=== PATIENT | male | born 1950 | race Caucasian/White ===

== ENCOUNTER 2022-11-22 22:13 | Inpatient (IN) | payer OTHER ==
[~2022-11-22] VITALS: Ht 165.1 cm; Wt 90.7 kg
[2022-11-22 22:28] VITALS: BP_SYST 111
--- NOTE | 2022-11-22 23:11 | NUR ---
MD AT BEDSIDE FOR EVALUATION AND ORDERS. FIRST CONTACT WITH PT. ASSESSMENT COMPLETED.
[2022-11-22 23:20] LABS: BASOPHILS # (AUTO) 0.1 K/uL (0.0-0.2); EOSINOPHILS # (AUTO) 0.4 K/uL (0.0-0.4); EOSINOPHILS % (AUTO) 5.8 % (0.0-4.0); HEMATOCRIT 37.5 % (36-54); HEMOGLOBIN 12.4 g/dL (14.0-18.0); LYMPHOCYTES # (AUTO) 1.8 K/uL (1.0-5.5); LYMPHOCYTES % (AUTO) 25.9 % (20.5-51.5); MEAN CORPUSCULAR HEMOGLOBIN 30 pg (27-31); MEAN CORPUSCULAR HGB CONC 33 % (32-36); MEAN CORPUSCULAR VOLUME 90 fL (79.0-98.0); MONOCYTES # (AUTO) 0.4 K/uL (0.0-1.0); MONOCYTES % (AUTO) 6.5 % (1.7-9.3); NEUTROPHILS # (AUTO) 4.2 K/uL (1.8-7.7); NEUTROPHILS % (AUTO) 60.8 % (40.0-70.0); PLATELET COUNT (AUTO) 168 K/uL (130-430); RED BLOOD CELL COUNT(AUTO) 4.17 MIL/uL (4.2-6.2); RED CELL DISTRIBUTION WIDTH 13.6 % (9.0-15.0); WHITE BLOOD COUNT (AUTO) 6.8 K/uL (4.8-10.8)
[2022-11-22 23:36] LABS: ANION GAP 6 (5-15); CALCIUM 8.7 mg/dL (8.4-11.0); CHLORIDE 104 mmol/L (98-107); CREATININE 1.93 mg/dL (0.55-1.30); GLUCOSE 349 mg/dL (70-99); UREA NITROGEN, BLOOD 24 mg/dL (8-21)
[2022-11-22 23:41] LABS: PROTHROMBIN TIME 10.2 SECS (9.5-12.5)
[2022-11-22 23:43] LABS: ALANINE AMINOTRANSFERASE 31 U/L (12-78); ASPARTATE AMINOTRANSFERASE 26 U/L (10-37); TOTAL BILIRUBIN 0.7 mg/dL (0.0-1.0)
--- NOTE | 2022-11-22 23:45 | NUR ---
FIRST CONTACT WITH PT. ASSESSMENT COMPLETED. AWAITING ADDITIONAL EVALUATION.
[2022-11-22 23:47] LABS: GFR AFRICAN AMERICAN 44 mL/min (>90)
[2022-11-23] VITALS (21 sets, daily range): BP systolic 83–160
[2022-11-23] MEDS ORDERED: DOPamine PREMIX 250 ML IV ONE ×2 (00:30→01:59)
--- NOTE | 2022-11-23 01:35 | NUR ---
Admit bed requested Patient will be admitted to care of . Admitted to ICU unit. Diagnosis SICK SINUS SYNDRONE Inpatient (Yes or No) Y Observation (Yes or No) N Orientation concerns or request close to nursing station (Yes or No) N Covid Status NA On vent or bipap N Isolation requirements N Needs a sitter N From Home (Yes or if No enter name of facility) Y Requires Dialysis (Yes or No) N Med Rec Completed (Yes of No) Y
--- NOTE | 2022-11-23 02:00 | NUR ---
ADMITTED FROM ER VIA [facility] AWAKE AND ALERT AMBULATORY WALKED TO BEDSIDE COMMODE, CONNECTED TO BEDSIDE MONITOR, DOPAMINE STARTED BP SHOOT UP STARTED AT LOW DOSE 2.5 MCG, PER PATIENT HE DID NOT TAKE ANY OF HIS BP MEDS AND INSULIN YET, NO MEDS GIVEN IN ER. PER SHE TOLD THE NURSE SHE HAD THE LIST OF HIS MEDICATION RN ANSWERED WE DONT NEED THAT RIGHT NOW, [address] PIERRE INFORMED HIM OF CURRENT HOME MEDS ADVISED TO START TONIGHT EXCEPT METOPOLO. [id number] COVERAGE GIVEN AND LANTUS GIVEN. 0300 PATIENT KEPT NPO FOR TRANSVENOUS PACEMAKER PLACEMENT TO[place]. 0400 SLEEPING SOUNDLY SB 48 ON MONITOR DOPAMINE INCREASED TO 3MCG.
[2022-11-23] MEDS: amLODIPine BESYLATE 5 MG TABLET PO SCH ×2 (03:00→09:00)
[2022-11-23] MEDS: INSULIN GLARGINE 100 UNITS/ML, 10 ML VIAL SUBCUT SCH ×2 (03:00→20:40)
[2022-11-23] MEDS: LISINOPRIL 10 MG TABLET (PRINIVIL) PO SCH ×3 (03:00→20:28)
[2022-11-23] MEDS ORDERED: NALOXONE HCL 0.4 MG/ML AMP (NARCAN) IVP PRN ×3 (03:00→13:00)
[2022-11-23] MEDS ORDERED: LISINOPRIL 10 MG TABLET (PRINIVIL) ONE (03:17)
[2022-11-23] MEDS ORDERED: ISOSORBIDE DINITRATE 10 MG TABLET (ISORDIL) ONE (03:17)
--- NOTE | 2022-11-23 03:46 | NUR ---
Patient will be admitted to care of DR CASAREZ. Admitted to ICU unit. Will go to room 07 . Belongings list completed. Complete and up to date summary report printed. SBAR report to be given at bedside with opportunity for questions.
[2022-11-23] MEDS: INSULIN LISPRO SLIDING SCALE 100 UNITS/ML, 3 ML VIAL (humaLOG) SUBCUT PRN ×4 (04:11→20:41)
[2022-11-23 05:12] LABS: BASOPHILS # (AUTO) 0.1 K/uL (0.0-0.2); BASOPHILS % (AUTO) 0.8 % (0.0-2.0); EOSINOPHILS # (AUTO) 0.4 K/uL (0.0-0.4); EOSINOPHILS % (AUTO) 4.4 % (0.0-4.0); HEMATOCRIT 38.4 % (36-54); HEMOGLOBIN 12.8 g/dL (14.0-18.0); LYMPHOCYTES # (AUTO) 1.6 K/uL (1.0-5.5); LYMPHOCYTES % (AUTO) 19.1 % (20.5-51.5); MEAN CORPUSCULAR HEMOGLOBIN 30 pg (27-31); MEAN CORPUSCULAR HGB CONC 33 % (32-36); MEAN CORPUSCULAR VOLUME 89 fL (79.0-98.0); MONOCYTES # (AUTO) 0.6 K/uL (0.0-1.0); NEUTROPHILS # (AUTO) 5.6 K/uL (1.8-7.7); NEUTROPHILS % (AUTO) 68.7 % (40.0-70.0); PLATELET COUNT (AUTO) 153 K/uL (130-430); RED BLOOD CELL COUNT(AUTO) 4.29 MIL/uL (4.2-6.2); RED CELL DISTRIBUTION WIDTH 13.4 % (9.0-15.0); WHITE BLOOD COUNT (AUTO) 8.2 K/uL (4.8-10.8)
[2022-11-23 05:50] LABS: CALCIUM 8.9 mg/dL (8.4-11.0); CREATININE 1.84 mg/dL (0.55-1.30); TOTAL BILIRUBIN 0.6 mg/dL (0.0-1.0)
[2022-11-23 05:59] LABS: PROTHROMBIN TIME 10.3 SECS (9.5-12.5)
[2022-11-23] MEDS: ISOSORBIDE DINITRATE 20 MG TABLET (ISORDIL) PO SCH ×2 (09:00→20:26)
[2022-11-23] MEDS: FUROSEMIDE 20 MG TABLET PO SCH ×2 (09:00→20:27)
[2022-11-23] MEDS: ATORVASTATIN 20 MG TABLET PO SCH (09:00)
[2022-11-23] MEDS ORDERED: HYDROmorphone 1 MG/ML INJ. CARTRIDGE IVP ONE (10:15)
--- NOTE | 2022-11-23 10:55 | NUR ---
EVENT MONITOR TURNED INTO ZEE FLOWERS PER DR. FRANCIS
--- NOTE | 2022-11-23 11:00 | NUR ---
TO O.R. CONNECTED PT TO PORTABLE GIVING OFFICER, WAS SEEN BY DR Kenisha FRANCIS, WITH [employer] CONTENT PRODUCER. TRANSPORTED VIA BED, ACCOMPANYING THE PATIENT.
[2022-11-23] MEDS ORDERED: ACETAMINOPHEN 500 MG TABLET PO ONE (13:00)
[2022-11-23] MEDS ORDERED: ONDANSETRON HCL 4 MG/2 ML VIAL IVP PRN (13:00)
[2022-11-23] MEDS ORDERED: HYDROmorphone 1 MG/ML INJ. CARTRIDGE IVP PRN (13:00)
[2022-11-23] MEDS ORDERED: METOCLOPRAMIDE HCL 10 MG/2 ML VIAL IVP PRN (13:00)
--- NOTE | 2022-11-23 13:00 | NUR ---
TO ICU RECEIVED PT IN ROOM 7. PT ALERT, ORIENTED, 2 STOPCOCKS IN RIGHT FEMORAL, RIGHT LEG IMMOBILIZER, INSTRUCTED PT TO AVOID MOVING RIGHT LEG TO PREVENT BLEEDING/DISCOMFORTS.
--- NOTE | 2022-11-23 13:15 | NUR ---
INCENTIVE SPIROMETER GIVEN AND VERBAL INSTRUCTIONS AND DEMONSTRATION GIVEN ON HOW TO USE. PATIENT STATES "I AINT GOING TO USE THAT THING, I HAVE 3 AT HOME. YOU CAN LEAVE IT THERE BUT I AM NOT GOING TO USE THAT." RISKS AND BENEFITS EXPLAINED. PATIENT THEN STATED "WHY ARE YOU TALKING? THE NEXT THING THAT COMES OUT OF YOUR MOUTH SHOULD BE YOU HAVE MY PAIN PILL."
[2022-11-23] MEDS: HYDROcodone/ACETAMIN 10-325 MG TAB PO PRN ×2 (13:40→20:31)
[2022-11-24] VITALS (12 sets, daily range): BP systolic 114–153
[2022-11-24 05:04] LABS: BASOPHILS % (AUTO) 0.5 % (0.0-2.0); EOSINOPHILS # (AUTO) 0.2 K/uL (0.0-0.4); EOSINOPHILS % (AUTO) 2.3 % (0.0-4.0); HEMATOCRIT 36.6 % (36-54); HEMOGLOBIN 12.3 g/dL (14.0-18.0); LYMPHOCYTES # (AUTO) 1.5 K/uL (1.0-5.5); LYMPHOCYTES % (AUTO) 15.7 % (20.5-51.5); MEAN CORPUSCULAR HEMOGLOBIN 30 pg (27-31); MEAN CORPUSCULAR HGB CONC 34 % (32-36); MEAN CORPUSCULAR VOLUME 89 fL (79.0-98.0); MONOCYTES # (AUTO) 0.7 K/uL (0.0-1.0); MONOCYTES % (AUTO) 7.5 % (1.7-9.3); NEUTROPHILS # (AUTO) 7.1 K/uL (1.8-7.7); PLATELET COUNT (AUTO) 139 K/uL (130-430); RED BLOOD CELL COUNT(AUTO) 4.11 MIL/uL (4.2-6.2); RED CELL DISTRIBUTION WIDTH 13.6 % (9.0-15.0); WHITE BLOOD COUNT (AUTO) 9.7 K/uL (4.8-10.8)
[2022-11-24 05:35] LABS: CALCIUM 8.7 mg/dL (8.4-11.0); CREATININE 1.57 mg/dL (0.55-1.30); TOTAL BILIRUBIN 0.8 mg/dL (0.0-1.0)
[2022-11-24] MEDS ORDERED: D5W 1,000 ML IV PRN (08:15)
[2022-11-24] MEDS ORDERED: DEXTROSE 50%-WATER 50 ML DISP.SYRIN IVP PRN (08:15)
[2022-11-24] MEDS ORDERED: GLUCOSE (DEXTROSE) ORAL GEL -Adults PO PRN (08:15)
[2022-11-24] MEDS: ATORVASTATIN 20 MG TABLET PO SCH (08:46)
[2022-11-24] MEDS: amLODIPine BESYLATE 5 MG TABLET PO SCH (08:46)
[2022-11-24] MEDS: FUROSEMIDE 20 MG TABLET PO SCH (09:00)
[2022-11-24] MEDS: ISOSORBIDE DINITRATE 20 MG TABLET (ISORDIL) PO SCH (09:00)
[2022-11-24] MEDS: LISINOPRIL 10 MG TABLET (PRINIVIL) PO SCH (09:00)
--- NOTE | 2022-11-24 10:00 | NUR ---
MD Ramo blackburn rounds, seen and examine patient and s/w spouse jeffry at the bedside.
[2022-11-24] MEDS ORDERED: INSU100V9 SQ (10:43)
[2022-11-24] MEDS ORDERED: HYDR-3925 PO (10:43)
[2022-11-24] MEDS ORDERED: ISO10 PO (10:43)
[2022-11-24] MEDS ORDERED: LIP40 PO (10:43)
[2022-11-24] MEDS ORDERED: CLOP75TA32 PO (10:43)
[2022-11-24] MEDS ORDERED: LISI10TA29 PO (10:43)
[2022-11-24] MEDS ORDERED: ASPI-1155 PO (10:43)
[2022-11-24] MEDS ORDERED: FURO-150 PO (10:43)
[2022-11-24] MEDS ORDERED: INSU100V SUBCUT (10:43)
[2022-11-24] MEDS ORDERED: METO25TA6 PO (10:43)
--- NOTE | 2022-11-24 11:20 | NUR ---
D/C Patient Patient given medication reconciliation form and D/C instructions. Exit Care provided. Patient verbalized understanding. MD discussed with patient the results and treatment provided. Ambulatory with steady gait for discharge to home. Patient in stable condition, ID band removed. IV catheter removed, intact and dressing applied, no active bleeding. Patient educated on pain management. All belongings sent with patient.wheel out via wheelchair accompanied with spouse jeffry.
[2022-11-25] MEDS ORDERED: AMLO2.5T2 PO (09:28)
[2022-11-25] MEDS ORDERED: LEVO750T64 PO (09:28)
[2022-11-25] MEDS ORDERED: NEU300 PO (09:28)
== END 2022-11-24 11:30 | disposition home or self-care (01) | DRG 228 ==
LOC: SED 22:13 → SIC 11-23 00:21
PROVIDERS: ADMIT Specialist; ATTEND Specialist
PROC: 02HK3NZ Insertion of Intracardiac Pacemaker into Right Ventricle, Percutaneous Approach (ICD-10-PCS; principal; 2022-11-23 11:00)
DX: R00.1 Bradycardia, unspecified (principal); Z00.6 Encounter for examination for normal comparison and control in clinical research program; N17.0 Acute kidney failure with tubular necrosis; N17.9 Acute kidney failure, unspecified; I13.0 Hypertensive heart and chronic kidney disease with heart failure and stage 1 through stage 4 chronic kidney disease, or unspecified chronic kidney disease; I50.9 Heart failure, unspecified; E11.22 Type 2 diabetes mellitus with diabetic chronic kidney disease; N18.9 Chronic kidney disease, unspecified
CPT/HCPCS: 36415; 71045; 76000; 80053; 82962; 83880; 84484; 85025; 85610-TC; 85730-TC; 86886; 86900; 86901; 87081; 93005; 99291; C1769; C1786; C1894; J1170; J1265; L1830; Q9967

== ENCOUNTER 2022-11-25 07:22 | Inpatient (IN) | payer OTHER ==
[~2022-11-25] VITALS: Ht 172.7 cm; Wt 88.5 kg
[~2022-11-25 07:22] MED LIST: ASPI-1155 PO; CLOP75TA32 PO; FURO-150 PO; HYDR-3925 PO; INSU100V SUBCUT; INSU100V9 SQ; ISO10 PO; LIP40 PO; LISI10TA29 PO; METO25TA6 PO
--- NOTE | 2022-11-25 07:40 | NUR ---
RECEIVED PT FROM [facility]. PT BIB FOR C/O C/P SINCE LAST NIGHT. PT IS S/P PACEMAKER PLACEMENT VIA RIGHT FEMORAL CATHERIZATION. RIGHT FEMORAL SITE IS HAS MILD SWELLING WITH MODERATE ECYMOSIS. SITE RINSED WITH NS AND COVERED WITH GAUZE AND TAPE. EKG SHOWS SINUS TACH WITH ST DEPRESSION. PT HAS C/O NAUSEA. ABDOMEN ROUND, NONTENDER, NONDISTENDED. SKIN WARM, DIAPHORETIC. DISTAL PULSES NORMAL. PT HAS RIGHT FOOT RECENT TOE AMPUTATIONS, SITE COVERED WITH CDI DRESSING. PT'S STATES THE SITE IS INFECTED. RIGHT FOOT ELEVATED ON PILLOW. PT STATES C/P 7/0. SIDERAILS UP X2.
[2022-11-25] MEDS ORDERED: ONDANSETRON HCL 4 MG/2 ML VIAL IVP ONE (07:45)
[2022-11-25] MEDS ORDERED: MORPHINE 4 MG INJ. 4 MG/ML VIAL IVP ONE (07:45)
[2022-11-25] MEDS ORDERED: ASPIRIN 325 MG TABLET PO ONE (07:45)
--- NOTE | 2022-11-25 07:45 | NUR ---
DR. JIN AT BEDSIDE TO ASSESS PT.
--- NOTE | 2022-11-25 07:55 | NUR ---
# 20 gauge angiocath placed to LAC. Use of asceptic technique. Opsite placed over site. Blood return noted. Blood for lab drawn from site. Flushed with 10 cc of normal saline. No evidence of infiltration noted. Patient tolerated well.
--- NOTE | 2022-11-25 08:05 | NUR ---
ASA HELD PER DR. JIN, HE STATED THE PT JUST HAD A CARDIAC CATH PROCEDURE, LETS HOLD AND VERIFY ASA WITH DR. Carissa FRANCIS, PT'S MARKETING AND PUBLIC RELATIONS MANAGER. ZOFRAN 4MG IVP FOR NAUSEA, AND MORPHINE 4MG IVP GIVEN FOR C/P 7/10.
--- NOTE | 2022-11-25 08:10 | NUR ---
U/S PELVIS, CXR BOTH COMPLETED.
[2022-11-25 08:20] LABS: BASOPHILS # (AUTO) 0.1 K/uL (0.0-0.2); BASOPHILS % (AUTO) 0.4 % (0.0-2.0); EOSINOPHILS # (AUTO) 0.1 K/uL (0.0-0.4); EOSINOPHILS % (AUTO) 0.4 % (0.0-4.0); HEMOGLOBIN 13.6 g/dL (14.0-18.0); LYMPHOCYTES % (AUTO) 19.7 % (20.5-51.5); MEAN CORPUSCULAR HEMOGLOBIN 29 pg (27-31); MEAN CORPUSCULAR HGB CONC 33 % (32-36); MEAN CORPUSCULAR VOLUME 88 fL (79.0-98.0); MONOCYTES # (AUTO) 1.4 K/uL (0.0-1.0); NEUTROPHILS # (AUTO) 10.8 K/uL (1.8-7.7); NEUTROPHILS % (AUTO) 70.5 % (40.0-70.0); PLATELET COUNT (AUTO) 146 K/uL (130-430); RED BLOOD CELL COUNT(AUTO) 4.66 MIL/uL (4.2-6.2); RED CELL DISTRIBUTION WIDTH 13.3 % (9.0-15.0); WHITE BLOOD COUNT (AUTO) 15.3 K/uL (4.8-10.8)
[2022-11-25 08:41] LABS: CALCIUM 8.9 mg/dL (8.4-11.0); CREATININE 1.53 mg/dL (0.55-1.30)
[2022-11-25 08:59] LABS: ALBUMIN 3.6 g/dL (3.4-4.8); TOTAL BILIRUBIN 1.5 mg/dL (0.0-1.0)
[2022-11-25] MEDS ORDERED: LEVO750T64 PO (09:28)
[2022-11-25] MEDS ORDERED: NEU300 PO (09:28)
[2022-11-25] MEDS ORDERED: AMLO2.5T2 PO (09:28)
--- NOTE | 2022-11-25 09:30 | NUR ---
Medication reconciliation completed with information provided by [facility]. Any prior medication reconciliation on file was reviewed and corrected.
--- NOTE | 2022-11-25 09:32 | NUR ---
VERIFIED INSULIN DOSAGES WITH
--- NOTE | 2022-11-25 09:42 | NUR ---
COMPA SWABBED AND SENT TO LAB
--- NOTE | 2022-11-25 09:50 | NUR ---
DR JIN SPEAKING WITH DR Kenisha FRANCIS REGARDING HIS PT.
--- NOTE | 2022-11-25 09:55 | NUR ---
DR FRANCIS IN ER TO EVALUATE PT
--- NOTE | 2022-11-25 10:49 | NUR ---
PT RECEIVING ECHO.
--- NOTE | 2022-11-25 11:06 | NUR ---
DR. CASAREZ AT BEDSIDE TO ASSESS PT.
--- NOTE | 2022-11-25 11:13 | NUR ---
Admit bed requested Patient will be admitted to care of . Admitted to TELEMETRY unit. Diagnosis RULE OUT CHEST PAIN Inpatient (Yes or No) Y Observation (Yes or No) N Orientation concerns or request close to nursing station (Yes or No) N Covid Status NEGATIVE On vent or bipap N Isolation requirements N Needs a sitter N From Home (Yes or if No enter name of facility) Y Requires Dialysis (Yes or No) N Med Rec Completed (Yes of No) YES
--- NOTE | 2022-11-25 12:05 | NUR ---
Patient will be admitted to care of [facility]. Admitted to TELEMETRY unit. Will go to room 124A. Belongings list completed. Complete and up to date summary report printed. SBAR report to be given at bedside with opportunity for questions.
[2022-11-25 12:07] VITALS: BP_SYST 151
--- NOTE | 2022-11-25 12:10 | NUR ---
ADMISSION Pt arrived from ED via gurney at 1200. pt transferred from gurney to bed. Pt was oriented to room and nursing routines and procedures. Pt's questions/concerns were answered. Pt's bed in low position and bed alarm on. Side rails raised. Call light within reach.
--- NOTE | 2022-11-25 14:15 | NUR ---
Note Pt ate very little of his lunch tray. Pt stable and tele unit which was applied on admission to floor is intact and attached. Pt has friend/family at bedside visiting at this time. Call light within reach
--- NOTE | 2022-11-25 14:25 | NUR ---
DR CASAREZ PLACED CALL TO DR CASAREZ PER PT AND PT'S REQUEST FOR MEDICATIONS TO BE ORDERED IN HOSPITAL. Addendum: 11/25/22 at 1443 by Saira De La Fuente RN SPOKE TO DASH AT [facility], TO NOTIFY THAT WE NEED MEDICATION RECONCILIATION FOR DIABETES AND HTN.
[2022-11-25 16:22] VITALS: BP_SYST 128
--- NOTE | 2022-11-25 18:25 | NUR ---
END OF SHIFT Dr Ralph on the floor to assess pt and order medications. Pt's tele unit attached and intact all shift. 2 IV's in left AC and left forearm intact and saline locked. Pt was checked on q1' and PRN all shift for needs and care. Pt's bed in low position and bed alarm on. Pt denies any severe chest pain/discomfort or SOB/resp distress all shift. Pt has urinal all bedside within reach. Call light within reach.
[2022-11-25] MEDS ORDERED: NALOXONE HCL 0.4 MG/ML AMP (NARCAN) IVP PRN (18:45)
[2022-11-25] MEDS ORDERED: amLODIPine BESYLATE 5 MG TABLET PO ONE (19:15)
[2022-11-25] MEDS ORDERED: ASPIRIN 81 MG TAB.CHEW PO ONE (19:15)
[2022-11-25] MEDS ORDERED: PANTOPRAZOLE SODIUM 40 MG TAB PO ONE (19:15)
[2022-11-25 20:00] VITALS: BP_SYST 129
[2022-11-25] MEDS: FUROSEMIDE 20 MG TABLET PO SCH (20:13)
[2022-11-25] MEDS: METOPROLOL TARTRATE 25 MG TABLET PO SCH (20:13)
[2022-11-25] MEDS: HYDROcodone/ACETAMIN 10-325 MG TAB PO PRN (20:13)
[2022-11-25] MEDS: ISOSORBIDE DINITRATE 10 MG TABLET (ISORDIL) PO SCH (20:13)
[2022-11-25] MEDS: GABAPENTIN 300 MG CAPSULE PO SCH (20:13)
[2022-11-25] MEDS: LISINOPRIL 10 MG TABLET (PRINIVIL) PO SCH (20:15)
[2022-11-25] MEDS ORDERED: TEMAZEPAM 7.5 MG CAPSULE PO SCH (21:00)
[2022-11-25] MEDS ORDERED: INSULIN GLARGINE 100 UNITS/ML, 10 ML VIAL SQ SCH (21:00)
--- NOTE | 2022-11-26 | NUR ---
DR CASAREZ NOTIFIED OF TROP LEVEL. NO NEW ORDERS
[2022-11-26 00:38] VITALS: BP_SYST 105
[2022-11-26] MEDS: HYDROcodone/ACETAMIN 10-325 MG TAB PO PRN (06:58)
[2022-11-26] MEDS ORDERED: INSULIN Lispro 100 UNITS/ML, 3 ML VIAL (humaLOG) SUBCUT SCH (07:00)
--- NOTE | 2022-11-26 07:33 | NUR ---
CONSULTATION PAGED/CALLED Reason for Consultation: [] CP Person Who was Notified: [] DR Kenisha ACOSTA Consulting Physician: [] DR Kenisha FRANCIS Import And Export Clerk Specialty: [] CARDIO Ordering Physician: [] DR CASAREZ
--- NOTE | 2022-11-26 08:00 | NUR ---
Initial notes Received patient AAOx4, respiration even and unlabored no signs of distress, IV infusing to left forearm patent. All safety precaution secured, bed in low position and call light w/in reached
[2022-11-26 08:29] VITALS: BP_SYST 118
[2022-11-26] MEDS: GABAPENTIN 300 MG CAPSULE PO SCH (08:33)
[2022-11-26] MEDS: FUROSEMIDE 20 MG TABLET PO SCH (08:34)
[2022-11-26] MEDS: LISINOPRIL 10 MG TABLET (PRINIVIL) PO SCH (08:35)
[2022-11-26] MEDS: METOPROLOL TARTRATE 25 MG TABLET PO SCH (08:36)
[2022-11-26] MEDS: ISOSORBIDE DINITRATE 10 MG TABLET (ISORDIL) PO SCH (08:36)
[2022-11-26] MEDS ORDERED: ASPIRIN 81 MG TAB.CHEW PO SCH (09:00)
[2022-11-26] MEDS ORDERED: ATORVASTATIN 20 MG TABLET PO SCH (09:00)
[2022-11-26] MEDS ORDERED: PANTOPRAZOLE SODIUM 40 MG TAB PO SCH (09:00)
[2022-11-26] MEDS ORDERED: amLODIPine BESYLATE 5 MG TABLET PO SCH (09:00)
[2022-11-26] MEDS ORDERED: CLOPIDOGREL BISULFATE 75 MG TABLET PO SCH (09:00)
[2022-11-26] MEDS ORDERED: MELOXICAM 7.5 MG TABLET PO SCH (09:00)
[2022-11-26] MEDS ORDERED: levoFLOXacin 500 MG TABLET PO SCH (10:00)
[2022-11-26] MEDS ORDERED: MELO-89 PO (12:45)
[2022-11-26 13:01] VITALS: BP_SYST 126
[2022-11-26 13:09] VITALS: BP_SYST 126
--- NOTE | 2022-11-26 13:44 | NUR ---
D/C Patient Patient given medication reconciliation form and D/C instructions. Exit Care provided. Patient verbalized understanding. MD discussed with patient the results and treatment provided. Ambulatory with steady gait for discharge to home. Patient in stable condition, ID band removed. IV catheter removed, intact and dressing applied, no active bleeding. Rx of given. Patient educated on pain management. All belongings sent with patient, escorted off unit via wheelchair to parking lot
--- NOTE | 2022-12-14 10:03 | NUR ---
Mort[employer] Maker RADIOLOGICAL TECHNOLOGIST made a Post Discharge Follow Up Phone Call to former pt. Dionisio, but spoke to his , Magdalene venegas who stated Dionisio is doing fine, had both follow up apts. with primary and Dr. Michele who check his heart monitor. There were no questions or concerns. Dionisio still continues to take his home medications as prescribed.
== END 2022-11-26 13:45 | disposition home or self-care (01) | DRG 206 ==
LOC: SED 07:22 → STU 11:05
PROVIDERS: ADMIT Specialist; ATTEND Specialist
DX: M94.0 Chondrocostal junction syndrome [Tietze] (principal); S30.1XXA Contusion of abdominal wall, initial encounter; I10 Essential (primary) hypertension; E11.51 Type 2 diabetes mellitus with diabetic peripheral angiopathy without gangrene; I25.10 Atherosclerotic heart disease of native coronary artery without angina pectoris; E78.5 Hyperlipidemia, unspecified; E66.9 Obesity, unspecified; I49.5 Sick sinus syndrome; E11.65 Type 2 diabetes mellitus with hyperglycemia; Z20.822 Contact with and (suspected) exposure to COVID-19; Z79.4 Long term (current) use of insulin; Z79.899 Other long term (current) drug therapy
CPT/HCPCS: 36415; 71045; 80053; 82962; 83690; 84484; 85025; 85651-TC; 93005; 93306; 96374; 96375; 99285; G0378; J1815; J2270; J2405